=== PATIENT | female | born 1990 | race Caucasian/White ===

== ENCOUNTER 2016-06-25 14:04 | Outpatient (CLI) | payer OTHER, MEDICAID | END 2016-06-25 14:05 | disposition home or self-care (01) | DX: Z79.899 Other long term (current) drug therapy (principal); E61.1 Iron deficiency; R68.89 Other general symptoms and signs ==

== ENCOUNTER 2016-07-13 15:01 | Outpatient (CLI) | payer OTHER, MEDICAID | END 2016-07-13 15:02 | disposition home or self-care (01) | DX: M25.50 Pain in unspecified joint (principal) ==

== ENCOUNTER 2016-08-26 12:30 | Outpatient (CLI) | payer OTHER, MEDICAID | END 2016-08-26 12:31 | disposition home or self-care (01) | DX: J03.90 Acute tonsillitis, unspecified (principal) ==

== ENCOUNTER 2016-10-13 13:33 | Outpatient (CLI) | payer OTHER, MEDICAID ==
[2016-10-14 19:53] LABS: TEST RESULT REPORT (())
== END 2016-10-13 13:34 | disposition home or self-care (01) ==
LOC: LAB.R 13:33
PROVIDERS: ATTEND Physician Assistant Medical
DX: N76.0 Acute vaginitis (principal); R10.2 Pelvic and perineal pain
CPT/HCPCS: 81599

== ENCOUNTER 2016-10-13 13:33 | Outpatient (CLI) | payer OTHER, MEDICAID | END 2016-10-13 13:34 | disposition home or self-care (01) | LOC: LAB.R 13:33 | PROVIDERS: ATTEND Physician Assistant Medical | DX: N76.0 Acute vaginitis (principal); R10.2 Pelvic and perineal pain | CPT/HCPCS: 81599; 87480; 87491; 87510; 87591; 87660 ==